=== PATIENT | female | born 1955 | race American Indian/Alaskan Native ===

== ENCOUNTER 2018-02-12 08:55 | Day surgery (SDC) | payer OTHER ==
[2018-02-12] MEDS ORDERED: NACL 0.9% 1000 ML 1,000 ML IV SCH (10:00)
[2018-02-12] MEDS ORDERED: DIPRIVAN 10 MG/ML IV ONE ×2 (11:21→12:13)
--- NOTE | 2018-02-12 11:27 | Anesthesia Day of Surgery ---
Anesthesia Day of Surgery - Day of Surgery Patient Examined: Yes Patient H&P Reviewed: Yes Patient is NPO: Yes
--- NOTE | 2018-02-12 11:27 | Anesthesia Consultation ---
Anesthesia Consult and Med Hx Date of service: 02/12/18 (upper and lower dentures) - Airway Anesthetic Teeth Evaluation: Dentures ROM Head & Neck: Adequate Mental/Hyoid Distance: Adequate Mallampati Class: Class II Intubation Access Assessment: Good - Pulmonary Exam CTA: Yes - Cardiac Exam Cardiac Exam: No Murmur - Pre-Operative Health Status ASA Pre-Surgery Classification: ASA2 Proposed Anesthetic Plan: General - Pulmonary Hx Smoking: No Hx Asthma: No Hx Respiratory Symptoms: No SOB: No COPD: No
--- NOTE | 2018-02-12 11:29 | History and Physical Report ---
History of Present Illness Date of examination: 02/12/18 Date of admission: 02/12/2018 Chief complaint: Colorectal cancer screening. History of present illness: Patient is a 62-year-old female who presents for colorectal cancer screening. She is scheduled for colonoscopy and has received her preparative regimen. She is currently nothing by mouth she presents in the hospital for colonoscopy. Past History Past Medical History: No medical history Medications and Allergies Allergies Allergy/AdvReac Type Severity Reaction Status Date / Time No Known Allergies Allergy Verified 02/12/18 09:20 Home Medications Medication Instructions Recorded Confirmed Last Taken Type No Known Home Medications [No 02/12/18 02/12/18 Unknown History Reported Home Medications] Active Meds: Active Medications Sodium Chloride (Nacl 0.9% 1000 Ml) 1,000 mls @ 50 mls/hr IV DIRECT ROBERTO Last Admin: 02/12/18 09:46 Dose: 50 mls/hr Review of Systems All systems: negative Exam - Constitutional Vitals: Temp Pulse Resp BP Pulse Ox 97.7 F 77 18 124/70 100 02/12/18 09:39 02/12/18 09:39 02/12/18 09:39 02/12/18 09:39 02/12/18 09:39 General appearance: Present: no acute distress, well-nourished - EENT Eyes: Present: PERRL ENT: hearing intact, clear oral mucosa - Neck Neck: Present: supple, normal ROM - Respiratory Respiratory effort: normal Respiratory: negative: CTA - Cardiovascular Heart Sounds: Present: S1 & S2. Absent: rub, click - Extremities Extremities: pulses symmetrical, No edema Peripheral Pulses: within normal limits - Abdominal General gastrointestinal: Present: soft, non-tender, non-distended, normal bowel sounds Female genitourinary: Present: normal - Integumentary Integumentary: Present: clear, warm, dry - Musculoskeletal Musculoskeletal: gait normal, strength equal bilaterally - Psychiatric Psychiatric: appropriate mood/affect, intact judgment & insight - Neurologic Neurologic: CNII-XII intact, moves all extremities Assessment and Plan Colorectal cancer screening. Plan: Full colonoscopy will be done today as an outpatient.
--- NOTE | 2018-02-12 12:14 | Operative Report ---
Operative Report Operative Report: Date of procedure: 02/12/2018 Procedure: Colonoscopy with Snare polypectomy and submucosal injection. Attending physician: Lucien Aguirre MD Elementary Classroom Teacher: Lucien Aguirre MD Indication: Patient is a 62-year-old female who presents for screening colonoscopy. This colonoscopy serves to evaluate patient so that treatment may be directed based on the findings. Consent: Informed consent was obtained after advising the patient and family regarding nature of this procedure, its indications, potential benefits as well as possible complications including but not limited to bleeding perforation and adverse reaction to medication, infection as well as other cardiopulmonary complications. An informed written and verbal consent was then obtained after due opportunity was provided for questions and answers. Monitoring: Patient was monitored continuously with pulse oximetry and electrocardiographic recordings as well as blood pressure recordings. Vital signs remained stable throughout this procedure with no untoward events. Preoperative assessment: Patient was assessed immediately prior to this procedure for capacity to tolerate monitored anesthesia care and moderate sedation as well as general anesthesia. Patient's ASA classification is 2, Mallampati class is 2, Hyomental distance is 3. Instrument: Carlypson video colonoscope Medications: Propofol given intravenously in divided doses. For details please refer to anesthesia records. Description of procedure: Patient was placed in the left lateral decubitus position after achieving sedation, a digital rectal examination was performed following which the colonoscope was introduced into the anal verge and advanced to the cecum which was identified by the cecal valve, the appendiceal orifice, as well as by the cecal strap and direct transillumination. The colonoscope was subsequently withdrawn with careful inspection of all mucosal surfaces. Patient tolerated this procedure well and was subsequently taken to the recovery room. The following findings were noted. Findings: Patient had a broad-based 1.5 cm semi-pedunculated polyp seen in the sigmoid colon. This was elevated with submucosal injection of saline and removed by snare electrocautery. Patient had multiple diverticula in the sigmoid and descending colon. Patient was noted to have internal hemorrhoids seen on the retroflexed view at the anal verge. Impression: Sigmoid colon polyp status post snare polypectomy and submucosal injection Diverticular disease of the colon Internal hemorrhoids. Plan: Follow pathology report. High-fiber diet. Repeat colonoscopy in 5 years, if polyp is adenomatous.
[2018-02-12 12:17] VITALS: BP 122/69
--- NOTE | 2018-02-12 17:40 | Discharge Summary ---
Short Stay Discharge Plan Activity: advance as tolerated Weight Bearing Status: Weight Bear as Tolerated Diet: regular Follow up with: YAYA TORRES MD [Primary Care Provider] - 7 Days
== END 2018-02-12 08:56 | disposition home or self-care (01) ==
LOC: GIO 08:55
PROVIDERS: ATTEND Internal Medicine Gastroenterology
DX: Z12.11 Encounter for screening for malignant neoplasm of colon (principal); D12.5 Benign neoplasm of sigmoid colon; K57.30 Diverticulosis of large intestine without perforation or abscess without bleeding; K64.8 Other hemorrhoids; M19.90 Unspecified osteoarthritis, unspecified site
CPT/HCPCS: 45390; 88305; J2704; J7030